=== PATIENT | male | born 1945 | race Caucasian/White ===

== ENCOUNTER 2020-08-26 14:36 | Outpatient (CLI) | payer MEDICARE, SELFPAY | END 2020-08-26 14:37 | disposition home or self-care (01) | LOC: ANHCOVIDVC 14:36 | PROVIDERS: PCP Family Medicine; Visit Provider Family Medicine | DX: Z23 Encounter for immunization (principal) | CPT/HCPCS: 0001A; 91300 ==

== ENCOUNTER 2020-09-16 14:38 | Outpatient (CLI) | payer MEDICARE, SELFPAY | END 2020-09-16 14:39 | disposition home or self-care (01) | LOC: ANHCOVIDVC 14:38 | PROVIDERS: PCP Family Medicine | DX: Z23 Encounter for immunization (principal) | CPT/HCPCS: 0002A; 91300 ==

== ENCOUNTER 2022-09-15 13:34 | Emergency (ER) | payer MEDICARE, SELFPAY ==
--- NOTE | 2022-09-15 13:38 | ED.URI ---
HPI - URI/Sore Throat General Chief Complaint: Upper Respiratory Infection Stated Complaint: SORE THROAT Time Seen by Provider: 09/15/22 13:55 Source: patient and RN notes reviewed Mode of arrival: ambulatory Limitations: no limitations History of Present Illness HPI Narrative: 76-year-old male presents concern for 3 week history of sore throat, copious postnasal drainage, sinus congestion. He denies fever, shortness of breath. Reports occasional cough. He reports he taking Coricidin without relief of symptoms. MD elicited complaint: sore throat, rhinorrhea and nasal congestion Related Data Home Medications Medication Instructions Recorded Confirmed coenzyme Q10 100 mg capsule 100 mg PO DAILY 08/16/22 09/15/22 finasteride 5 mg tablet 5 mg PO DAILY 08/16/22 09/15/22 levothyroxine 150 mcg tablet 150 mcg PO DAILY 08/16/22 09/15/22 lisinopril 5 mg tablet 5 mg PO DAILY 08/16/22 09/15/22 simvastatin 40 mg tablet 40 mg PO DAILY 08/16/22 09/15/22 tamsulosin 0.4 mg capsule 0.4 mg PO DAILY 08/16/22 09/15/22 turmeric 400 mg capsule 400 mg PO DAILY 08/16/22 09/15/22 warfarin 1 mg tablet 1 mg PO DAILY 08/16/22 09/15/22 warfarin 5 mg tablet 5 mg PO DAILY 08/16/22 09/15/22 Allergies Allergy/AdvReac Type Severity Reaction Status Date / Time banana Allergy Severe THROAT Verified 09/15/22 13:57 SWELLING grape Allergy Intermediate ITCHING Verified 09/15/22 13:57 cabbage Allergy Unknown Swelling Verified 09/15/22 13:57 ciprofloxacin Allergy Unknown Other Verified 09/15/22 13:57 Quinolones Allergy Unknown Other Verified 09/15/22 13:57 Review of Systems Review of Systems: CONSTITUTIONAL: Denies malaise, chills, sweats, or fever. EYES: Denies visual changes, redness, or discharge. ENT: Reports rhinorrhea, congestion, and sore throat. CARDIOVASCULAR: Denies chest pain, palpitations, or edema. RESPIRATORY: Reports occasional cough. Denies dyspnea. GASTROINTESTINAL: Denies abdominal pain, nausea, vomiting, diarrhea SKIN: Denies rash or itching. MUSCULOSKELETAL: Denies myalgia. NEUROLOGIC: Denies headache. All systems reviewed & are unremarkable except as noted in HPI and below PMFSH Past Medical History Medical History (Updated 09/15/22 @ 14:03 by Kavitha Spence NP) Adequate anticoagulation on anticoagulant therapy Atherosclerosis of aorta Benign prostatic hyperplasia with urinary obstruction Chronic kidney disease, stage 3a Chronic kidney disease, stage III (moderate) Chronic obstructive pulmonary disease, unspecified Cigarette nicotine dependence Cigarette nicotine dependence, uncomplicated Enlarged prostate with lower urinary tract symptoms (LUTS) Erectile dysfunction Hesitancy of micturition Hyperlipidemia, unspecified Hypertensive chronic kidney disease with stage 1 through stage 4 chronic kidney disease, or unspecified chronic kidney disease 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, 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 Nicotine dependence, cigarettes, with other nicotine-induced disorders Personal history of other venous thrombosis and embolism Personal history of pulmonary embolism Social History Social History Smoking packs per day: 1 Smoking cigarettes per day: 20.0 Smoking status: Current every day smoker Tobacco type: cigarettes Second hand tobacco smoke exposure: Yes Alcohol intake: current Alcohol use details: social Substance use: never Substance use type: does not use Lack of Transportation: No Lack of Food: Never True Current Housing: I Have Housing Concerned About Future Housing: No Difficulty Paying Gas/Electric Bills: No Difficulty Paying for Meds: No Currently Unemployed: YES Difficulty w/ Childcare or Family Care: No Living arrangements: with family Occupation/Education: retired Gender identity (if verbalized by the patient): Male Sexual Orientation (if Verbalized by the Patient): Straight or Heterosexual 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
[2022-09-15 13:40] VITALS: BP 145/65; PULSE 78; RESP 16; TEMP 36.6; O2SAT 100
== END 2022-09-15 14:10 | disposition home or self-care (01) ==
PROVIDERS: Emergency Provider Nurse Practitioner; PCP Family Medicine
DX: J01.90 Acute sinusitis, unspecified (principal); B96.89 Other specified bacterial agents as the cause of diseases classified elsewhere; I12.9 Hypertensive chronic kidney disease with stage 1 through stage 4 chronic kidney disease, or unspecified chronic kidney disease; N18.31 Chronic kidney disease, stage 3a; E03.9 Hypothyroidism, unspecified; E78.5 Hyperlipidemia, unspecified; J44.9 Chronic obstructive pulmonary disease, unspecified; F17.210 Nicotine dependence, cigarettes, uncomplicated; Z79.01 Long term (current) use of anticoagulants; Z86.711 Personal history of pulmonary embolism
CPT/HCPCS: 99213; G0463

== ENCOUNTER 2023-10-12 11:18 | Outpatient (CLI) | payer MEDICARE, SELFPAY ==
--- NOTE | ~2023-10-12 | XR_ITS ---
Clinical Indication: Cough PA and lateral views of the chest: Comparison: None Findings: The lungs are clear, without evidence of focal consolidation or pleural effusion. Cardiome diastinal silhouette is within normal limits. Bones and soft tissues are unremarkable. Impression: Normal chest. Reviewed, dictated and finalized at location . Impression: Normal chest.
== END 2023-10-12 11:19 | disposition home or self-care (01) ==
PROVIDERS: PCP Family Medicine; Visit Provider Family Medicine
DX: J42 Unspecified chronic bronchitis (principal)
CPT/HCPCS: 71046